=== PATIENT | male | born 1990 | race Two or more races ===

== ENCOUNTER 2017-04-22 21:06 | Emergency (ER) | payer OTHER ==
[~2017-04-22 21:06] MED LIST: LORazepam 2 MG/ML INJ IVP ONE
[2017-04-22] MEDS ORDERED: LORazepam 2 MG/ML INJ ONE (21:12)
[2017-04-22] MEDS ORDERED: NS 1,000 ML IV ONE (21:17)
[2017-04-22] MEDS ORDERED: PANTOPRAZOLE SODIUM 80 MG in NS 100 ML IV ONE (21:18)
[2017-04-22] MEDS ORDERED: ONDANSETRON 4 MG/2 ML VIAL IVP ONE (21:19)
--- NOTE | 2017-04-22 21:27 | EDPHY ---
H & P HPI/ROS: CHIEF COMPLAINT: Seizure, withdrawal HISTORY OF PRESENT ILLNESS: Patient presents by EMS with reports of seizure and possible withdrawal. He is in the custody of the [facility]. He has been incarcerated for 2 days. Prior to incarceration, he admits to daily ingestion of heroin, 2 mg Xanax bars, greater than or equal to 1 pt of vodka per day. Since incarceration he has been on a Librium taper but no other medications. He reports feeling shaky and sweating. EMS reports 2 seizures today. One at 1800 and the other at 2000. This was witnessed by [facility] is personnel. EMS reports that the patient was postictal upon arrival. He is complaining of nausea and vomiting. His emesis appears to be dark but there is no bright red blood in it. There is no bright red blood in the stools. He has no chest pain or shortness of breath. REVIEW OF SYSTEMS: Ten systems reviewed and are negative unless otherwise noted in the HPI PAST MEDICAL HISTORY: Alcohol abuse, substance abuse. Previous seizure SOCIAL HISTORY: Smokes cigarettes. 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 Admits to p.o. drug abuse including 2 mg Xanax. Admits to alcohol abuse of 1 fight per day of vodka FAMILY HISTORY: Noncontributory EXAMINATION General Appearance: Alert, no distress Head: normocephalic, atraumatic. No Paredes sign. No raccoon eyes. No outward signs of trauma Eyes: Pupils equal and round, no conjunctival pallor or injection. No nystagmus. EOMs intact. ENT, Mouth: Mucous membranes moist. Airway is widely patent. Neck: Normal inspection, supple, non-tender. Midline trachea. Respiratory: Lungs are clear to auscultation. No wheezing, rhonchi or crackles. Cardiovascular: Intermittent tachycardia. Regular rhythm. No murmur. Pulses intact distally in symmetrically Gastrointestinal: Abdomen is soft and nontender Back: non-tender, no bony abnormalities Neurological: GCS 15. Cranial nerves 2-12 grossly intact. Strength is 5/5 in all 4 limbs. No pronator drift. No dysmetria. No tremor. A&O, nonfocal, normal gait Skin: Warm and dry, no rash. Multiple tattoos. Extremities: Nontender, no pedal edema Psychiatric: Anxious. Appropriate conversation. DIFFERENTIAL DIAGNOSES: Including but not limited to alcohol withdrawal seizure, benzodiazepine withdrawal seizure, seizure, dehydration, delirium tremens, gastritis, upper GI bleed MDM: 9:20 p.m. Seizure that is likely due to either alcohol or benzodiazepine withdrawal. The patient does not exhibit any signs or symptoms of delirium tremens. He is not encephalopathic, hypertensive, hyperthermic. He is awake and alert with normal conversation. I have administered 2 mg of Ativan, I have ordered p.o. clonidine. I will check his laboratory studies and provide IV fluid resuscitation. Monitor closely. 9:50 p.m.. I have re-evaluated the patient. He is resting comfortably. There is no tremor. No seizure-like activity thus far in the emergency department. Vital signs are stable. Chest x-ray as read by me without the aid of the radiologist reveals no acute findings. Laboratory studies thus far reveal no acute findings. 10:10 p.m. X-ray has been read as negative for appearance of aspiration. He remains awake and alert in no acute distress. No seizure-like activity thus far. Plan for discharge back to custody of the [facility] They are clear fine with the patient can be administered clonidine while incarcerated. 10:30 p.m. I have been informed by the officer from [facility] department that clonidine may be administered to the patient. Thus he will be discharged in stable condition. He will remain in their custody with clonidine taper and continue the Librium taper. Follow up there and return to the ER for subsequent seizure. He is discharged to the custody of [facility] in stable condition SUPERVISION: Shared visit with Dr. Migule A Brown Source: Patient, Police, RN/MD Exam Limitations: No limitations Constitutional: Initial Vital Signs Temperature (C) 98.4 F 04/22/17 21:18 Heart Rate 104 H 04/22/17 21:18 Respiratory Rate 18 04/22/17 21:18 Blood Pressure 157/94 H 04/22/17 21:18 O2 Sat (%) 94 04/22/17 21:18 O2 Delivery Mode Room Air Allergies/Adverse Reactions: amoxicillin Allergy (Verified 04/22/17 21:27) Home Medications: Medication Instructions Recorded clonIDINE [Catapres (*)] 0.1 mg PO Q8 #9 tab 04/22/17 Medical Decision Making - Diagnostics Imaging Results: Imaging Impressions Chest X-Ray 04/22/17 21:25 Impression: Clear lungs. No evidence of aspiration. - Data Points Laboratory Results: Laboratory Results 04/22/17 21:10 04/22/17 21:10 04/22/17 04/22/17 04/22/17 21:10 21:10 21:10 WBC 13.03 10^3/uL H 10^3/uL (3.80-9.50) RBC 5.71 10^6/uL 10^6/uL (4.40-6.38) Hgb 16.8 g/dL g/dL (13.7-17.5) Hct 47.2 % % (40.0-51.0) MCV 82.7 fL fL (81.5-99.8) MCH 29.4 pg pg (27.9-34.1) MCHC 35.6 g/dL g/dL (32.4-36.7) RDW 13.0 % % (11.5-15.2) Plt Count 415 10^3/uL H 10^3/uL (150-400) MPV 11.0 fL fL (8.7-11.7) Neut % (Auto) 68.8 % % (39.3-74.2) Lymph % (Auto) 21.6 % % (15.0-45.0) Grand % (Auto) 9.0 % % (4.5-13.0) Eos % (Auto) 0.0 % L % (0.6-7.6) Baso % (Auto) 0.3 % % (0.3-1.7) Nucleat RBC Rel Count 0.0 % % (0.0-0.2) Absolute Neuts (auto) 8.96 10^3/uL H 10^3/uL (1.70-6.50) Absolute Lymphs (auto) 2.82 10^3/uL 10^3/uL (1.00-3.00) Absolute Monos (auto) 1.17 10^3/uL H 10^3/uL (0.30-0.80) Absolute Eos (auto) 0.00 10^3/uL L 10^3/uL (0.03-0.40) Absolute Basos (auto) 0.04 10^3/uL 10^3/uL (0.02-0.10) Absolute Nucleated RBC 0.00 10^3/uL 10^3/uL (0-0.01) Immature Gran % 0.3 % % (0.0-1.1) Immature Gran # 0.04 10^3/uL 10^3/uL (0.00-0.10) PT 14.9 SEC SEC (12.0-15.0) INR 1.17 H (0.83-1.16) APTT 28.3 SEC SEC (23.0-38.0) Sodium 144 mEq/L mEq/L (134-144) Potassium 3.3 mEq/L L mEq/L (3.5-5.2) Chloride 101 mEq/L mEq/L (97-110) Carbon Dioxide 23 mEq/l mEq/l (22-31) Anion Gap 20 mEq/L H mEq/L (8-16) BUN 10 mg/dL mg/dL (7-23) Creatinine 1.0 mg/dL mg/dL (0.7-1.3) Estimated GFR > 60 Glucose 101 mg/dL H mg/dL (70-100) Calcium 10.8 mg/dL H mg/dL (8.5-10.4) Phosphorus 5.2 mg/dL H mg/dL (2.5-4.5) Creatine Kinase 122 IU/L IU/L (0-224) Medications Given: Discontinued Medications Clonidine (Catapres) 0.1 mg PO EDNOW ONE Stop: 04/22/17 21:20 Last Admin: 04/22/17 21:26 Dose: 0.1 mg Sodium Chloride (Ns) 1,000 mls @ 0 mls/hr IV ONCE ONE; Wide Open PRN Reason: Protocol Stop: 04/22/17 21:18 Last Admin: 04/22/17 21:29 Dose: 1,000 mls Pantoprazole Sodium 80 mg/ (Sodium Chloride) 100 mls @ 200 mls/hr IV ONCE ONE Stop: 04/22/17 21:47 Last Admin: 04/22/17 21:57 Dose: 100 mls Lorazepam (Ativan Injection) 2 mg IVP EDNOW ONE Stop: 04/22/17 21:01 Last Admin: 04/22/17 21:29 Dose: 2 mg Ondansetron HCl (Zofran) 4 mg IVP EDNOW ONE Stop: 04/22/17 21:20 Last Admin: 04/22/17 21:29 Dose: 4 mg Departure - Departure Disposition: Home, Routine, Self-Care Clinical Impression: Opiate withdrawal Withdrawal from benzodiazepine Qualifiers: Complication of substance-induced condition: with unspecified complication Qualified Code(s): F13.239 - Sedative, hypnotic or anxiolytic dependence with withdrawal, unspecified Alcohol withdrawal Qualifiers: Complication of substance-induced condition: with unspecified complication Qualified Code(s): F10.239 - Alcohol dependence with withdrawal, unspecified Condition: Good Instructions: Benzodiazepine Abuse (ED), Narcotic Abuse (ED), Abuse of Alcohol (ED) Additional Instructions: 1. Add clonidine as prescribed as discussed 2. Follow up with the physician in charge of incarcerated patient's within the next 2-3 days 3. Return to the ER for return of seizure or bright red emesis or stools 4. Continue with Librium taper Referrals: Patient,NotPresent [Unknown] - As per Instructions Kaden Lopez DO [Medical Doctor] - As per Instructions Prescriptions: clonIDINE [Catapres (*)] 0.1 mg PO Q8 #9 tab
[2017-04-22 21:36] LABS: % IMMATURE GRANULYOCYTES 0.3 % (0.0-1.1); ABSOLUTE IMMATURE GRANULOCYTES 0.04 10^3/uL (0.00-0.10); ADD DIFF? NO; ADD MORPH? NO; ADD SCAN? NO; ATYPICAL LYMPHOCYTE FLAG 0 (0-99); FRAGMENT RBC FLAG 0 (0-99); HEMATOCRIT 47.2 % (40.0-51.0); HEMOGLOBIN 16.8 g/dL (13.7-17.5); LEFT SHIFT FLG 0 (0-99); LIPEMIA HEMOLYSIS FLAG 90 (0-99); MEAN CELL HEMOGLOBIN 29.4 pg (27.9-34.1); MEAN CELL HEMOGLOBIN CONCENTR. 35.6 g/dL (32.4-36.7); MEAN CELL VOLUME 82.7 fL (81.5-99.8); PLATELET CLUMPS FLAG 0 (0-99); PLATELET COUNT 415 10^3/uL (150-400); RED BLOOD CELL COUNT 5.71 10^6/uL (4.40-6.38)
[2017-04-22 21:47] LABS: ANION GAP 20 mEq/L (8-16); CALCIUM 10.8 mg/dL (8.5-10.4); CARBON DIOXIDE 23 mEq/l (22-31); CHLORIDE 101 mEq/L (97-110); GLOMERULAR FILTRATION RATE > 60; GLUCOSE 101 mg/dL (70-100); POTASSIUM 3.3 mEq/L (3.5-5.2); SODIUM 144 mEq/L (134-144)
[2017-04-22 21:56] LABS: INR 1.17 (0.83-1.16); PROTIME(PATIENT) 14.9 SEC (12.0-15.0)
[2017-04-22 21:57] LABS: APTT 28.3 SEC (23.0-38.0)
[2017-04-22 23:07] VITALS: BP 111/68; PULSE 78; RESP 20; TEMP 98.1; O2SAT 97
== END 2017-04-22 23:08 | disposition home or self-care (01) ==
DX: F11.23 Opioid dependence with withdrawal (principal); F13.239 Sedative, hypnotic or anxiolytic dependence with withdrawal, unspecified; F10.239 Alcohol dependence with withdrawal, unspecified; F17.210 Nicotine dependence, cigarettes, uncomplicated; R11.2 Nausea with vomiting, unspecified
CPT/HCPCS: 96365; J2060; J2405